=== PATIENT | female | born 1965 ===

== ENCOUNTER 2019-09-11 09:17 | Outpatient (CLI) | payer OTHER | END 2019-09-11 09:23 | disposition home or self-care (01) | LOC: RX STUDY 09:17 | DX: K21.0 Gastro-esophageal reflux disease with esophagitis (principal); M77.30 Calcaneal spur, unspecified foot ==

== ENCOUNTER 2022-02-13 11:01 | Emergency (ER) | payer OTHER ==
[~2022-02-13] VITALS: Ht 152.4 cm; Wt 65.8 kg
== END 2022-02-13 16:39 | disposition home or self-care (01) ==
LOC: ER 11:01
DX: K59.00 Constipation, unspecified (principal); R10.2 Pelvic and perineal pain; R10.9 Unspecified abdominal pain

== ENCOUNTER 2022-02-16 08:02 | Outpatient (CLI) | payer OTHER | END 2022-02-16 08:12 | disposition home or self-care (01) | LOC: RX STUDY 08:02 | PROVIDERS: ATTEND Internal Medicine Gastroenterology | DX: K44.9 Diaphragmatic hernia without obstruction or gangrene (principal); K30 Functional dyspepsia ==